=== PATIENT | male | born 2000 | race Two or more races ===

== ENCOUNTER 2024-09-30 06:51 | Emergency (ER) | payer OTHER, SELFPAY ==
[2024-09-30 06:54] VITALS: BMI 62.0
[2024-09-30 07:08] VITALS: BP 128/66; PULSE 79; RESP 18; TEMP 36.8; O2SAT 97
--- NOTE | 2024-09-30 07:21 | EDNOTE_ITS ---
Lower Extremity Injury RME/HPI General Chief Complaint: Extremity Injury, Lower Stated Complaint: R LEG INJURY Time Seen by Provider: 09/30/24 07:20 Arrival date/time: 09/30/24 06:51 Mode of arrival: ambulatory Limitations: no limitations DEDE / SYED HUNTER complaint: other (24-year-old male presents to the ED with a complaint of pain to the area of the right hip that began approximately 2-1/2 3 weeks ago after a heavy object he was sliding down onto a table pinched him which resulted in an infectious-like process.) Injury: Right: hip Type of Injury: blunt Place: home Severity: moderate Severity scale (1-10): 4 Relieving factors: nothing Exacerbating factors: movement Context: other (A heavy object pinched the patient's skin proximal to the right hip) Associated symptoms: swelling Related Data Previous Rx's ?Medication ?Instructions ?Recorded cephalexin 500 mg tablet 500 mg PO QID #40 tabs 09/30 mupirocin 2 % topical ointment 1 applic topical BID #1 5 grams 09/30/24 Allergies Allergy/AdvReac Type Severity Reaction Status Date / Time No Known Allergies Allergy Verified 09/30/24 07:00 Review of Systems Constitutional Constitutional: Reports system reviewed and no additional complaints, except as documented Eyes Eyes: Reports system reviewed and no additional complaints, except as documented, Denies dry eyes, Denies exophthalmos and Reports floaters Cardiovascular Cardiovascular: Denies chest pain with activity and Denies claudication ED Exam Narrative Physical exam: The area proximal to the right hip General Limitations: Present no limitations General appearance: Present alert and in no apparent distress Head Head exam: Present atraumatic Eye Eye exam: Present normal appearance and EOMI ENT ENT exam: Present normal exam, normal oropharynx and mucous membranes moist Neck Neck exam: Present normal inspection, full ROM and trachea midline Chest Chest inspection: Present normal inspection and symmetric chest wall rise Extremities Exam Extremities exam: Present normal inspection and full ROM Back Exam Back exam: Present normal inspection and full ROM Neurological Exam Neurological exam: Present alert and oriented X3 Psychiatric Psychiatric exam: Present normal affect and normal mood Skin Skin exam: Present warm, dry, intact, normal color and other (At the area of the right hip there is an oblong lesion that is indurated and tender to palpation. Is not erythematous.) Course Quality Measures none (NA) Vital Signs Vital signs: Vital Signs Temperature 98.2 F 09/30/24 07:08 Pulse Rate 79 09/30/24 07:08 Respiratory Rate 18 09/30/24 07:08 Blood Pressure 128/66 09/30/24 07:08 Pulse Oximetry (%) 97 09/30/24 07:08 Oxygen Delivery Method Room Air 09/30/24 07:08 Extremity Injury, Lower MDM Narrative MDM Narrative:: Patient will be prescribed cephalexin and mupirocin and he is to have a 2-day wound check. If he is worse he is to return here or to primary care physician. Patient data External records reviewed:: Other (specify) (NA) Clinical information provided by:: patient Social determinants that could affect healthcare access:: none (NA) Patient has the following chronic illnesses:: NA How is presenting disease/condition affected by chronic disease/condition?: exacerbated by (Movement) Evaluation data The following diagnostics were reviewed and interpreted by me:: other (specify) (NA) Lab and/or radiology exams considered but not ordered:: NA Interpretation Summary: NA Medications / Prescriptions Medications or Prescriptions considered but not ordered:: NA Medication administrations:: NA Consultations Consultation(s) initiated? (list below): No Diagnosis Extremity Injury, Lower Differential Diagnosis: acute internal derangement of knee and fracture of femur Most likely diagnosis given after review of the tests above:: NA Admission Indicated Admission indicated?: not indicated Explain why admission is indicated or not indicated:: NA Admission Request Was there a request for admission?: No Admission Attestation Admission request attestation: NA Disposition Plan Disposition Plan: Discharge Discharge Attestation Discharge Attestation: The patient and all family members were given an opportunity to ask questions and understood the discharge instructions. Discharge instructions specifically effects, indications for sooner follow up or return to the emergency department, and the expected course of current diagnosis. Patient condition: Stable Discharge Plan Plan Patient Disposition: HOME (Self Care) Discharge Disposition comment: Discharge in no apparent distress Patient condition on transfer: Stable Prescriptions/Referrals Prescriptions/Med Rec: New cephalexin 500 mg tablet 500 mg PO QID Qty: 40 0RF mupirocin 2 % ointment 1 applic topical BID Qty: 15 0RF Problem List Clinical Impression: Cellulitis Impression comment: Cellulitis Patient/Caregiver Discharge Instructions Discharge Activity: activity as tolerated Print Language: Syriac Stand Alone Forms: [employer]., Patient Portal Info Letter PA/EQUIPMENT SERVICE ENGINEER Supervising Physician PA/EQUIPMENT SERVICE ENGINEER Supervising Physician: DRE
== END 2024-09-30 07:59 | disposition home or self-care (01) ==
LOC: SERX 07:45
PROVIDERS: Emergency Provider Physician Assistant
DX: S89.91XA Unspecified injury of right lower leg, initial encounter (principal); L03.115 Cellulitis of right lower limb; W23.1XXA Caught, crushed, jammed, or pinched between stationary objects, initial encounter
CPT/HCPCS: 99281